=== PATIENT | female | born 1970 | race Caucasian/White ===

== ENCOUNTER 2018-01-17 13:20 | Emergency (ER) | payer MEDICARE, OTHER ==
[~2018-01-17] VITALS: Ht 165.1 cm; Wt 61.4 kg
[2018-01-17 13:40] VITALS: BP 136/78
[2018-01-17 14:08] LABS: CLARITY,URINE CLOUDY (Clear); COLOR,URINE YELLOW (Yellow); GLUCOSE, URINE NEGATIVE (Neg); KETONES,URINE NEGATIVE (Neg); LEUKOCYTE ESTERASE ,URINE LARGE (Neg); NITRITES, URINE NEGATIVE (Neg); OCCULT BLOOD,URINE LARGE (Neg); PH,URINE 7.5 (4.8-8.0); PROTEIN,URINE 30 mg/dl (Neg); UROBILINOGEN,URINE 0.2 E.U/dL (0.2-1.0)
[2018-01-17 14:09] LABS: UA COLLECTION TYPE CLN CATCH MIDSTREAM
[2018-01-17 14:15] LABS: BACTERIA,URINE 1+ /HPF (Neg); RBC,URINE TNTC /HPF (0-2); WBC,URINE TNTC /HPF (0-4)
[2018-01-17 14:16] LABS: MUCUS STRANDS NONE SEEN /LPF (Neg); RENAL CELLS, URINE FEW /HPF; SQUAMOUS EPITHELIAL CELL,UR FEW /LPF (FEW); WBC CLUMPS,URINE MANY /HPF (NEGATIVE)
[2018-01-17] MEDS ORDERED: CEPH500C2 PO (14:25)
[2018-01-17] MEDS ORDERED: PHEN-716 PO (14:25)
== END 2018-01-17 14:52 | disposition home or self-care (01) ==
LOC: ER 13:20
DX: N39.0 Urinary tract infection, site not specified (principal); Z88.8 Allergy status to other drugs, medicaments and biological substances; Z88.2 Allergy status to sulfonamides; Z79.899 Other long term (current) drug therapy
CPT/HCPCS: 81001; 87077; 87088; 87186; 99284